=== PATIENT | male | born 1990 | race Caucasian/White ===

== ENCOUNTER 2018-03-05 03:19 | Emergency (ER) | payer OTHER, MEDICAID, SELFPAY ==
[2018-03-05 05:14] VITALS: PULSE 74; TEMP 37.1; O2SAT 99
[2018-03-05 05:28] VITALS: PULSE 74; TEMP 37.1; O2SAT 99; BMI 23.6
--- NOTE | 2018-03-05 05:54 | ED.EXTPRO ---
HPI - Extremity Problem General Chief complaint: Extremity Problem,Nontraumatic Stated complaint: both hands/wrists have pain x7 days Time Seen by Provider: 03/05/18 05:42 Source: patient Mode of arrival: ambulatory Limitations: no limitations History of Present Illness HPI Narrative: This is a 27-year-old male comes to the emergency department with complaint of swelling and aching in both hands. Patient states that it has been going on for a couple weeks. He noticed it after he started his most recent job. 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 But does do some repetitive motions with his hand. Patient has not had any fevers, no chest pain or shortness of breath. No rashes or skin changes. No nausea, vomiting no diarrhea or constipation. He has not had any urinary issues. I does have some swelling sometimes in his legs or his sock band is prominent. He has not had any other joint Um or achiness in his joints. He is on Suboxone for addiction. He also had sepsis after an elbow infection which was treated with the surgery or incision and drainage. Related Data Home Medications Medication Instructions Recorded Confirmed Suboxone 12 mg 03/05/18 Allergies Allergy/AdvReac Type Severity Reaction Status Date / Time Clavulanic Acid Allergy Unknown STOMACH Uncoded 08/05/17 12:04 IRRITATION Hydrocodone Allergy Unknown ITCHING Uncoded 08/05/17 12:04 Review of Systems Review of Systems All systems reviewed & are unremarkable except as noted in HPI and below Constitutional Denies chills, Denies fever(s) and Denies malaise Cardiovascular Denies chest pain, Denies dyspnea and Denies dyspnea on exertion Respiratory Denies cough, Denies dyspnea, Denies dyspnea on exertion and Denies wheezing Gastrointestinal Gastrointestinal: Denies abdominal pain, Denies change in bowel habits, Denies diarrhea, Denies nausea and Denies vomiting Musculoskeletal Reports arthralgias (Bilateral hand), Denies muscle weakness, Denies numbness, Denies stiffness and Denies tingling Integumentary/Breasts Denies rash, Denies skin swelling and Reports unusual bruising Neurologic Denies numbness and Denies tingling Allergic/Immunologic Denies wheezing PFSH Medical History Addiction (Acute) Social History Smoking Status: Current every day smoker Exam Narrative Exam Narrative: GENERAL: Alert and oriented x three, well nourished, well appearing male in no acute distress. HEENT: Head normocephalic, atraumatic, EOMI, pupils reactive, face symmetric, moist mucous membranes NECK: Supple, full range of motion CARDIOVASCULAR: Regular rate and rhythm without murmurs, rubs or gallops. RESPIRATORY: Breath sounds equal bilaterally, no wheezes rales or rhonchi. ABDOMEN: Soft, nontender. Normoactive bowel sounds all 4 quadrants. No guarding or rebound, rigidity, no mass : No CVA tenderness EXTREMITIES: Normal range of motion, no clubbing, mild edema left greater than right hands but in both hands, non-pitting, non-tender to palpation, no rashes, no edema noted in ankles. Neurovascularly intact. 2+ pulses bilateral upper extremities. NEUROLOGICAL: Cranial nerves II through XII grossly intact. Moving all extremities SKIN: Warm, dry, no petechiae, no rashes or lesions. Initial Vital Signs Initial Vital Signs: Vital Signs Temperature 98.8 F 03/05/18 05:14 Pulse Rate 74 03/05/18 05:14 Pulse Oximetry 99 03/05/18 05:14 Course Orders Ordered: ED Orders 03/05/18 06:23 Basic Metabolic Panel Stat Complete Blood Count AUTO DIFF Stat Erythrocyte Sedimentation Rate Stat 03/05/18 06:30 Urinalysis and Microscopic Stat Vital Signs - 8 hr 03/05/18 05:14 03/05/18 05:28 03/05/18 07:48 Temperature 98.8 F 98.8 F Pulse Rate 74 74 98 H Respiratory Rate 18 Blood Pressure 133/92 H Pulse Oximetry 99 99 97 MDM - Extremity (Nontraumatic) Lab Data Result diagrams: 03/05/18 06:23 03/05/18 06:23 Lab Results 03/05/18 03/05/18 03/05/18 Range/Units 06:23 06:23 06:30 WBC 5.3 (4.5-11.0) X10^3/uL RBC 4.15 L (4.5-5.9) X10^6/uL Hgb 12.7 L (13.5-17.5) g/dL Hct 37.3 L (41-53) % MCV 89.7 (80-100) fL MCH 30.5 (26-34) PG MCHC 34.0 (30-36) % RDW 15.5 H (11.6-14.8) % Plt Count 183 (150-400) X10^3/uL Neut % (Auto) 61.5 (50-75) % Lymph % (Auto) 28.2 (25-40) % [place] % (Auto) 5.4 (3-14) % Eos % (Auto) 3.9 (2-4) % Baso % (Auto) 1.0 (0-2) % Neut # (Auto) 3200 (7317-9110) /uL ESR 4 (0-15) MM/HR Sodium 141 (137-145) mmol/L Potassium 4.2 (3.4-5.1) mmol/L Chloride 105 (98-107) mmol/L Carbon Dioxide 28 (22-32) mmol/L BUN 20 (9-20) mg/dL Creatinine 0.80 (0.66-1.25) mg/dL Estimated GFR > 60.0 (>60) mL/min BUN/Creatinine Ratio 25.0 H (6-22) Glucose 92 (70-100) mg/dL Calcium 9.0 (8.4-10.2) mg/dL Urine Color Yellow Urine Appearance Clear Urine pH 7.0 (4.5-8.0) Ur Specific [place] 1.020 (1.000-1.035) Urine Protein Negative (Negative) Urine Glucose (UA) Negative (Normal) g/dL Urine Ketones Negative (NEGATIVE) Urine Occult Blood Negative (Negative) Urine Nitrate Negative (Negative) Urine Bilirubin Negative (NEGATIVE) Urine Urobilinogen 0.2 (0.2) E.U./dL Ur Leukocyte Esterase Negative (NEGATIVE) Urine RBC None seen (0-5/HPF) Urine WBC None seen (0-5/HPF) Urine Bacteria None seen (None) Urine Mucus 1+ H (Negative) Ur Culture Indicated? Cult not indicated Micro UA Comment Not Reportable Discharge Plan Departure Patient Disposition: Home Clinical Impression: Bilateral hand swelling Discharge Date/Time: 03/05/18 07:48 Interventions: ED Discharge Assessment Last Done: 03/05/18 07:48 Activity Restrictions/Additional Instructions: Follow up your primary care physician in the next 7-10 days for recheck. Take motrin up to 800mg every 8 hours as needed for pain/inflammation. Return to the ER for fevers greater than 100.4F, new rashes, chest pain, shortness of breath, persistent vomiting, passing out or other new or concerning symptoms. Prescriptions: No Action Suboxone 12 mg RF: 0
[2018-03-05 06:35] LABS: Bacteria Urine None Seen; RBC Urine None Seen (0-5/HPF); WBC Urine None Seen (0-5/HPF)
[2018-03-05 06:41] LABS: Appearance Urine UA CLEAR; Bilirubin Urine UA NEGATIVE (NEGATIVE); Color Urine UA YELLOW; Glucose Urine UA NEGATIVE (Normal); Ketones Urine UA NEGATIVE (NEGATIVE); Leukocyte Esterase Urine UA NEGATIVE (NEGATIVE); Nitrite Urine UA NEGATIVE (Negative); Occult Blood Urine UA NEGATIVE (Negative); Protein Urine UA NEGATIVE (Negative); Urobilinogen Urine UA 0.2 E.U./dL (0.2)
[2018-03-05 06:44] LABS: Add Manual Diff / Slide Review NO; Blood Urea Nitrogen 20 mg/dL (9-20); Carbon Dioxide 28 mmol/L (22-32); Chloride 105 mmol/L (98-107); Eosinophils Percent Auto 3.9 % (2-4); Estimated Glomerular Filt Rate > 60.0 mL/min (>60); Glucose 92 mg/dL (70-100); HEMOLYSIS < 15 (0-50); Hematocrit 37.3 % (41-53); Hemoglobin 12.7 g/dL (13.5-17.5); Lymphocytes Percent Auto 28.2 % (25-40); Mean Corpuscular Hemoglobin 30.5 PG (26-34); Mean Corpuscular Volume 89.7 fL (80-100); Monocytes Percent Auto 5.4 % (3-14); Neutrophils Absolute Auto 3200 /uL (3000-5900); Neutrophils Percent Auto 61.5 % (50-75); Platelet Count 183 X10^3/uL (150-400); Potassium 4.2 mmol/L (3.4-5.1); Red Blood Cell Count 4.15 X10^6/uL (4.5-5.9); Red Cell Distribution Width 15.5 % (11.6-14.8); Sodium 141 mmol/L (137-145); White Blood Cell Count 5.3 X10^3/uL (4.5-11.0)
[2018-03-05 07:16] LABS: Culture Indicated Urine Cult Not Indicated; Mucus Urine 1+ (Negative)
[2018-03-05 07:17] LABS: Erythrocyte Sedimentation Rate 4 MM/HR (0-15)
[2018-03-05 07:48] VITALS: BP 133/92; PULSE 98; RESP 18; O2SAT 97
== END 2018-03-05 07:48 | disposition home or self-care (01) ==
PROVIDERS: Emergency Provider Emergency Medicine
DX: M79.89 Other specified soft tissue disorders (principal)
CPT/HCPCS: 36415; 80048; 81001; 85025; 85651; 99283

== ENCOUNTER → 2019-01-13 15:52 | Outpatient (CLI) | payer OTHER, MEDICAID, SELFPAY ==
[2019-01-13 16:41] LABS: Add Manual Diff / Slide Review NO; Basophils Absolute Auto 100 /uL (0-100); Basophils Percent Auto 1.5 % (0-2); Eosinophils Absolute Auto 200 /uL (0-450); Eosinophils Percent Auto 3.6 % (2-4); Hematocrit 42.1 % (41-53); Hemoglobin 14.1 g/dL (13.5-17.5); Lymphocytes Absolute Auto 2200 /uL (1100-4500); Lymphocytes Percent Auto 39.8 % (25-40); Mean Corpuscular HGB Conc 33.4 % (30-36); Mean Corpuscular Volume 92.8 fL (80-100); Monocytes Absolute Auto 400 /uL (0-900); Monocytes Percent Auto 6.9 % (3-14); Neutrophils Absolute Auto 2700 /uL (1500-7000); Neutrophils Percent Auto 48.2 % (50-75); Platelet Count 196 X10^3/uL (150-400); Red Blood Cell Count 4.53 X10^6/uL (4.5-5.9); Red Cell Distribution Width 13.9 % (11.6-14.8); White Blood Cell Count 5.5 X10^3/uL (4.5-11.0)
[2019-01-13 16:57] LABS: Hemoglobin A1C% w Est Avg Glu 5.2 % (4.0-6.0)
[2019-01-13 17:08] LABS: BUN Creatinine Ratio 27.1 (6-22); Blood Urea Nitrogen 19 mg/dL (9-20); Carbon Dioxide 29 mmol/L (22-32); Chloride 103 mmol/L (98-107); Cholesterol 111 mg/dL (140-199); Estimated Glomerular Filt Rate > 60.0 mL/min (>60); Glucose 98 mg/dL (70-100); HDL Cholesterol 61 mg/dL (40-60); HEMOLYSIS 16 (0-50); LDL Cholesterol Calculated 43 mg/dL (<100); Potassium 4.5 mmol/L (3.4-5.1); Sodium 139 mmol/L (137-145); Triglycerides 34 mg/dL (35-150)
== END ==
PROVIDERS: PCP Hospitalist; Visit Provider Hospitalist
DX: J45.990 Exercise induced bronchospasm (principal)
CPT/HCPCS: 36415; 80048; 80061; 83036; 85025